=== PATIENT | male | born 1970 | race African-American/Black ===

== ENCOUNTER 2021-07-17 13:05 | Emergency (ER) | payer OTHER ==
[~2021-07-17] VITALS: Ht 180.3 cm; Wt 86.4 kg
[2021-07-17 13:53] LABS: HEMATOCRIT 44.3 % (39.0-50.0); HEMOGLOBIN 14.4 g/dl (14.0-18.0); IMMATURE GRANULOCYTES 3.8 % (0.0-5.0); MEAN CORPUSCULAR HGB 31.9 pG CALC (26.0-32.0); MEAN CORPUSCULAR HGB CONC 32.5 g/dL CAL (32.0-36.0); NEUT# 4.51 thou/uL (1.82-7.42); RED BLOOD COUNT 4.52 mill/uL (4.70-6.10); RED CELL DISTRI WIDTH 12.4 % (11.5-15.5)
[2021-07-17 14:05] LABS: ALBUMIN 4.7 g/dL (3.2-5.0); ALKALINE PHOSPHATASE 93 u/l (38-126); ANION GAP 30 (6-22 (CALC)); BUN 10 mg/dL (9-20); BUN/CREATININE RATIO 8 (12-20 (CALC)); CARBON DIOXIDE 11 mmol/l (22-30); CHLORIDE 106 mmol/l (95-108); CREATININE 1.2 mg/dL (0.7-1.3); ETHYL ALCOHOL 0 mg/dl (0-30); GFR > 60 ML/MIN (>=60 (CALC)); GFR FOR AFR.AMER. > 60 ML/MIN (>=60 (CALC)); LIPASE 248 u/l (23-300); MAGNESIUM 2.4 mg/dL (1.6-2.3); POTASSIUM 3.5 mmol/l (3.5-5.1); SGOT/AST 51 u/l (17-59); SODIUM 143 mmol/l (137-146); TOTAL PROTEIN 8.6 g/dL (6.3-8.2)
[2021-07-17 14:11] LABS: PROTHROMBIN TIME 10.3 SECONDS (9.0-12.5)
[2021-07-17 14:13] LABS: D-DIMER 5.18 mg/L (0.19-0.60)
[2021-07-17 14:54] LABS: URINE BILIRUBIN - DIPSTICK NEGATIVE (NEGATIVE); URINE BLOOD DIPSTICK MODERATE (NEGATIVE); URINE COLOR YELLOW; URINE GLUCOSE - DIPSTICK NEGATIVE (NEGATIVE); URINE KETONE NEGATIVE (NEGATIVE); URINE LEUK ESTERASE NEGATIVE (NEGATIVE); URINE PROTEIN - DIPSTICK 30 mg/dL (NEG-TRACE); URINE SPECIFIC GRAVITY 1.025; URINE UROBILINOGEN - DIPSTICK 0.2 E.U./dL (0.2)
[2021-07-17 14:56] LABS: URINE NITRITE - DIPSTICK NEGATIVE (Negative)
[2021-07-17 15:05] LABS: URINE RBC 0-2 RBC/hpf (0-5)
[2021-07-17 15:06] LABS: URINE SPERM RARE hpf (NONE-RARE)
[2021-07-17] MEDS ORDERED: KEPPRA500 M2 PO (17:38)
[2021-07-17 17:53] VITALS: BP 138/81
== END 2021-07-17 18:10 | disposition home or self-care (01) ==
LOC: ED 13:05
DX: G40.909 Epilepsy, unspecified, not intractable, without status epilepticus (principal); E87.2 Acidosis; Z20.822 Contact with and (suspected) exposure to COVID-19
CPT/HCPCS: J1953; Q9967